=== PATIENT | female | born 1955 | race Caucasian/White ===

== ENCOUNTER 2017-01-08 02:55 | Inpatient (IN) | payer OTHER ==
[~2017-01-08] VITALS: Ht 162.6 cm; Wt 65.8 kg
[~2017-01-08 02:55] MED LIST: XANAX0.5 M1 PO
--- NOTE | 2017-01-08 07:01 | Admission Core Measures ---
Admission Meds I reviewed the following Meds: Current Medications Sig/Fish Start time Last Medication Dose Stop Time Status Admin Acetaminophen 975 MG ONCE 01/08 0000 NR (Tylenol) 01/08 2359 Cefazolin Sodium 2,000 MG ONCE 01/08 NR (Kefzol-Ancef Inj) 01/08 2359 Oxycodone HCl 10 MG ONCE 01/08 0000 NR (Roxicodone) 01/08 2359 Acute Coronary Syndrome Inclusion Criteria ACS Diagnosis No Inpatient Core Measures LDL Reminder: If No, please order W/I first 24hr of stay Congestive Heart Failure Inclusion Criteria CHF Diagnosis No Cerebrovascular accident Inclusion Criteria CVA/TIA Diagnosis No Inpatient Core Measures Bedside Swallow Eval Reminder: If BSE failed, place ST order Antithrombotic Reminder: Order Antithrombotic Medication by end of day 2 Antithrombotic Reminder: Document Reason Antithrombotic Not ordered by end of day 2 AFIB/Flutter Reminder: If Present, add to problem list AFIB/Flutter Reminder: Order Anticoag Medication for pts with AFIB/Flutter Atherosclerosis Reminder: If Present, add to problem list LDL Reminder: If No, please order W/I first 24hr of stay PT Order Reminder: If No, please order Venous thromboembolism Inpatient Core Measures VTE Risk Factors: [facility] prophylaxis d/t No contraindications No VTE Pharm Prophylaxis d/t No contraindications Inclusion Criteria - Per Current guidelines, there needs to be overlap - treatment for the first 5 days of Warfarin therapy. - Parenteral Anticoagulation (IV or SC) needs to be - given along with Warfarin therapy. VTE Diagnosis No VTE Type NONE VTE Confirmed by (Test) NONE Problem List As ranked by this Provider includes Assessment & Plan 1. Unilateral primary osteoarthritis, left hip HOME MEDS Home Med List Alprazolam (Xanax) 0.5 MG TABLET 1 TAB PO D SLEEP (Reported)
--- NOTE | 2017-01-08 07:32 | Surgical Discharge Summary ---
Visit Information Visit Dates Admission Date: 01/08/17 Discharge Date: 01/08/17 History of Present Illness Chief Complaint: LEFT HIP PAIN, OSTEOARTHRITIS Medical History Isolation History: Standard Surgical History Pertinent Surgical History: hip replacement Review of Systems: SEE H&P Hospital Course Course Attending Physician: DELFINA MCCLENDON MD Primary Care Physician: UNKNOWN Hospital Course: Patient was admitted to the hospital for an elective total joint replacement. Procedure was tolerated well and patient was transferred to a general surgical floor. Diet was advanced and tolerated and patient voided spontaneously. PT evaluated and treated. At time of discharge, vital signs were stable and within normal limits, neurovascular status was intact, and pain was controlled with oral pain medications. Complications: None Allergies: Coded Allergies: No Known Allergies (01/07/17) Disposition Summary Disposition Principal Diagnosis: Left hip pain, unilateral osteoarthritis Additional Diagnosis: same s/p left total hip replacement Discharge Disposition: home health services Discharge Instructions General Discharge Information Code Status: Full Code Patient's Diet: regular diet, as tolerated Patient's Activity: weight bearing as tolerated Follow-Up Instructions/Appts: Follow up with Dr. Mcclendon in 6 weeks from date of surgery, contact office to arrange/confirm this appointment Medications at Discharge Discharge Medications: Continue taking these medications: Alprazolam (Xanax) 0.5 MG TABLET 1 Tablet ORAL Every Day Comments: NOT GIVEN IN HOSPITAL Start taking the following new medications: Aspirin (Ecotrin*) 325 MG TABLET.DR 1 Tablet ORAL TWICE DAILY Qty = 30 No Refills Instructions: take with food Comments: Last Taken: 01/08/17 Time: 1315 PM Hydromorphone HCl (Dilaudid) 2 MG TABLET 1-2 Tablet ORAL EVERY 4-6 HOURS NEEDED as needed for pain control Qty = 36 No Refills Comments: Last Taken: 01/08/17 Time: 1315PM Docusate Sodium (Colace) 100 MG CAPSULE 1 Capsule ORAL TWICE DAILY as needed for CONSTIPATION Qty = 14 No Refills Instructions: stool softener, available over the counter Comments: Last Taken: 01/08/17 Time: 1315 PM Polyethylene Glycol 3350 (Miralax) 17 GRAM POWD.PACK 1 Packet ORAL DAILY as needed for CONSTIPATION Qty = 2 Refills = 1 Instructions: dissolve in water Comments: Last Taken: 01/08/17 Time: 1315 PM Morphine Sulfate (Ms Contin) 15 MG TABLET.ER 1 Tablet ORAL TWICE DAILY Qty = 6 No Refills Comments: NOT GIVEN IN HOSPITAL
[2017-01-08] MEDS ORDERED: MIRALAX17 G1 PO (07:47)
[2017-01-08] MEDS ORDERED: ASPIRIN EC325 M2 PO (07:47)
[2017-01-08] MEDS ORDERED: COLACE100 M1 PO (07:47)
[2017-01-08] MEDS ORDERED: DILAUDID2 M1 PO (07:47)
[2017-01-08] MEDS ORDERED: MS CONTIN30 M1 PO (07:47)
--- NOTE | 2017-01-08 07:50 | Patient Discharge Instructions ---
Discharge Instructions General Discharge Information You were seen/treated for: left hip osteoarthritis You had these procedures: left total hip replacement, anterior approach Watch for these problems: fever>101.3, increased pain, redness/swelling/drainage No bath, but you may shower: Yes Other wound care: see pre-printed sheet Diet Continue normal diet: Yes Recommended Diet: Regular Activity Full Activity/No Limits: Yes Activity Self Limited: Yes Activity Limited to: Weight bear as tolerated Other activity limits: ambulate with rolling walker assistance as needed Acute Coronary Syndrome Inclusion Criteria At DC or during hospital stay patient has or had the following: ACS DIAGNOSIS No Discharge Core Measures Meds if any: Prescribed or Continued at Discharge Meds if any: NOT Prescribed or Continued at Discharge Congestive Heart Failure Inclusion Criteria At DC or during hospital stay patient has or had the following: CHF DIAGNOSIS No Discharge Core Measures Meds if any: Prescribed or Continued at Discharge Meds if any: NOT Prescribed or Continued at Discharge Cerebrovascular accident Inclusion Criteria At DC or during hospital stay patient has or had the following: CVA/TIA Diagnosis No Discharge Core Measures Meds if any: Prescribed or Continued at Discharge Meds if any: NOT Prescribed or Continued at Discharge Venous thromboembolism Inclusion Criteria VTE Diagnosis No VTE Type NONE VTE Confirmed by (Test) NONE Discharge Core Measures - Per Current guidelines, there needs to be overlap - treatment for the first 5 days of Warfarin therapy. - If discharged on Warfarin prior to 5 days of - overlap therapy, the patient will need to be - assessed for post discharge needs including - *Post discharge parental anticoagulation - *Warfarin and/or parental anticoagulation education - *Follow up date to check INR post discharge At least 5 days overlap therapy as Inpatient No Meds if any: Prescribed or Continued at Discharge Note: Overlap Therapy is Warfarin and Anticoagulant Meds if any: NOT Prescribed or Continued at Discharge
[2017-01-08] MEDS ORDERED: MS CONTIN15 M2 PO (09:13)
--- NOTE | 2017-01-08 09:59 | RADIOLOGY REPORT ---
EXAMINATION: XR HIP, LEFT CLINICAL INFORMATION: Status post total hip arthroplasty. COMPARISON: None TECHNIQUE: Two views of the left hip. FINDINGS: There are immediate postoperative changes with metallic acetabular, femoral head, and proximal femoral components without evidence of immediate hardware failure. IMPRESSION: Postoperative changes without evidence of complication.
[2017-01-08 10:40] VITALS: BP 124/80
[2017-01-08 13:00] VITALS: BP 126/78
[2017-01-08 14:32] VITALS: BP 132/80
--- NOTE | 2017-01-08 14:58 | PN- Orthopedic ---
Subjective Subjective: POST-OP NOTE: Reports "discomfort" of her left hip incision, better with ice. Tolerating diet. No nausea/vomiting. Cleared by PT for home. No dizziness. No shortness of breath. No chest pains. Voided twice already since surgery. Eager to go home this afternoon. Objective Vital Signs and I&Os Vital Signs Date Time Temp Pulse Resp B/P B/P Pulse O2 O2 Flow FiO2 Mean Ox Delivery Rate 01/08 1350 Room Air 01/08 1300 98.7 66 18 126/78 100 Room Air 01/08 1040 65 18 124/80 99 Room Air Intake & Output 01/08 1600 01/08 0800 01/08 0000 01/07 1600 01/07 0800 01/07 0000 Intake Total 1125 Output Total 300 Balance 825 Intake, IV 225 Intake, Oral 900 Output, Urine 300 Patient 145 lb 145 lb Weight Weight Reported by Patient Measurement Method Physical Exam: General - alert & oriented x 3. out of bed to chair. comfortable. Lungs - clear bilaterally. no w/r/r. Cardiac - s1s2. reg. Extremities - warm bilaterally. no c/c/e. left hip dressing c/d/i. no hematoma. no drains. nvi b/l. calves soft and nontender b/l. Current Medications: Current Medications Sig/Fish Start time Last Medication Dose Route Stop Time Status Admin Acetaminophen 650 MG Q6-PRN PRN 01/08 1100 AC PO Acetaminophen 0 .STK-MED ONE 01/08 0705 DC PO Acetaminophen 975 MG ONCE 01/08 0000 DC PO 01/08 2359 Aspirin 325 MG BID 01/08 1000 AC 01/08 PO 1311 Cefazolin Sodium 2 GM IQ8 01/08 1600 AC N/A 1 UNIT IV 01/09 0029 Cefazolin Sodium 2,000 MG ONCE 01/08 0000 DC IV 01/08 2359 Dextrose/Sodium 1,000 ML .[id number] 01/08 1100 AC 01/08 Chloride IV 1040 Docusate Sodium 100 MG BID 01/08 1000 AC 01/08 PO 1311 Hydromorphone HCl 2 MG Q4P PRN 01/08 1100 AC 01/08 PO 1310 Hydromorphone HCl 4 MG Q4P PRN 01/08 1100 AC PO Ketorolac 15 MG Q8P PRN 01/08 1100 AC 01/08 Tromethamine IV 01/11 1055 1421 Morphine Sulfate 2 MG Q2P PRN 01/08 1100 AC IV Omeprazole 20 MG DAILY AC 01/09 0700 AC PO Ondansetron HCl 4 MG Q6P PRN 01/08 1100 AC IV Oxycodone HCl 0 .STK-MED ONE 01/08 0705 DC PO Oxycodone HCl 10 MG ONCE 01/08 0000 DC PO 01/08 2359 Patient Medication 1 ED .STK-MED ONE 01/08 1214 DC Teaching ED 01/08 1215 Polyethylene Glycol 17 GM DAILY 01/08 1000 AC 01/08 PO 1311 Promethazine HCl 12.5 MG Q6P PRN 01/08 1100 AC IV 01/15 0714 Assessment/Plan Assessment/Plan This is a 61 year old white female who is POD#0 s/p left total hip replacement, anterior approach tolerating diet pain controlled cleared by PT for home voided twice asa bid - dvt ppx [place]-operative x 2 doses d/c home today will d/w Core Measures/Miscellaneous Venous Thromboembolism VTE Risk Factors: Age > 40, Surgery VTE Contraindications: No Contraindications VTE Diagnosis: No VTE Type: NONE VTE Confirmed by (Test): NONE Beta Cl Is Beta Cl a Home Med? No Antibiotics Is Patient on Antibiotics? Yes If Yes: prophylaxis
--- NOTE | 2017-01-08 16:40 | Operative Report ---
Operative/Inv Procedure Report Surgery Date: 01/08/17 Name of Procedure: Left total hip replacement Pre-Operative Diagnosis: Primary left hip DJD Post-Operative Diagnosis: Same Estimated Blood Loss: 250 Surgeon/Jewelry Salesperson: HAKAN THAPA,DELFINA Ceidllo Anesthesia: block Operative/Procedure Note Note: Description of Procedure: The patient was taken to the operating room and positively identified. After induction of spinal anesthesia and administration of appropriate pre-operative antibiotics, the patient was positioned supine on the operating room table and all bony prominences were well padded. After performing a surgical timeout, the left lower extremity was prepped and draped in the usual sterile fashion. A direct anterior approach was made to the left hip. The incision was carried sharply through superficial soft tissues to the level of the fascia. Meticulous hemostasis was maintained with Bovie electocautery. The fascia over the tensor fascia angélica muscle was opened sharply and the interval between the TFL and the sartorius was entered bluntly taking care to stay lateral to the lateral femoral cutaneous nerve. Retractors were placed around the femoral neck and the pericapsular fat was identified. The ascending branches of the lateral femoral circumflex vessels were identified and carefully coagulated. The pericapsular fat and anterior capsule were then resected. A napkin ring osteotomy was performed and the femoral head was removed without difficulty. Attention was then turned to the acetabulum. After appropriate placement of retractors, the acetabulum was exposed. Soft tissue was cleaned from the acetabular margin and notch. Overhanging osteophytes were removed and the teardrop was exposed. The acetabulum was then sequentially reamed to accept a 56 mm [place] Tritanium hemispherical solid back shell. This was impacted into place in the appropriate position and fitted with a 36 mm Trident X3 zero degree polyethylene insert. Attention was then turned to the femur. After performing the appropriate ligament releases, the proximal femur was exposed. It was then sequentially broached to accept a size 8 [place] Secur-Fit Advanced 127 stem. This was trialed for leg length and stability. The trial component was removed and the final component was impacted into place. The trunnion was carefully cleaned and fit with a 36 mm, +5 Biolox delta ceramic femoral head. The hip was reduced and put through a full range of motion and found to be stable. The articular space was then irrigated with sterile saline. The periarticular soft tissues were infilitrated with Marcaine. The fascial layer was closed with interrupted #1 vicryl suture and the skin was re-approximated with interrupted 2 -0 vicryl. The skin was closed with a running 3-0 V-Lock suture. Steri-strips and a sterile dressing were applied. The patient was awakened and taken to the recovery room in satisfactory condition.
== END 2017-01-08 15:50 | disposition home health service (06) | DRG 470 ==
LOC: SDA 02:55 → ENRESERV 10:06 → ENTRNSPT 10:26 → EDTRNSPT 10:28 → EDTRNSPTTYP 10:28 → CMPTRNSPT 10:52 → 2NB 10:55 → ENPENDDIS 14:53 → 2NB 15:50
PROVIDERS: ADMIT Orthopaedic Surgery
PROC: 0SRB04A Replacement of Left Hip Joint with Ceramic on Polyethylene Synthetic Substitute, Uncemented, Open Approach (ICD-10-PCS; principal; 2017-01-08)
DX: M16.12 Unilateral primary osteoarthritis, left hip (principal); E78.2 Mixed hyperlipidemia; M85.80 Other specified disorders of bone density and structure, unspecified site; G47.00 Insomnia, unspecified; Z85.41 Personal history of malignant neoplasm of cervix uteri; K21.9 Gastro-esophageal reflux disease without esophagitis; F41.9 Anxiety disorder, unspecified; Z87.891 Personal history of nicotine dependence
CPT/HCPCS: 2NBP; 73502-LT; 88304; 97116-GO; 97161-GP; 97530-GO; J0690; J2405; J2550; J7042